=== PATIENT | female | born 1995 | race American Indian/Alaskan Native ===

== ENCOUNTER 2020-10-10 11:23 | Emergency (ER) | payer MEDICAID ==
[2020-10-10 12:03] VITALS: BP 124/81
[2020-10-10 12:25] LABS: Basophils % (Auto) 0.5 % (0.0-1.8); Eosinophils % (Auto) 0.6 % (0.0-4.3); Hematocrit 39.9 % (30.3-42.9); Hemoglobin 13.2 gm/dl (10.1-14.3); Lymphocytes # (Auto) 2.2 K/mm3 (1.2-5.4); Mean Corpuscular HGB Conc 33 % (30-34); Mean Corpuscular Volume 89 fl (79-97); Monocytes # (Auto) 0.7 K/mm3 (0.0-0.8); Monocytes % (Auto) 8.9 % (0.0-7.3); Platelet Count 467 K/mm3 (140-440); Red Cell Distribution Width 15.1 % (13.2-15.2)
[2020-10-10 12:43] LABS: Alanine Aminotransferase 13 units/L (7-56); Albumin 4.2 g/dL (3.9-5); Blood Urea Nitrogen 10 mg/dL (7-17); Calcium 8.7 mg/dL (8.4-10.2); Hemolysis Index 13
--- NOTE | 2020-10-10 12:44 | Emergency Department Report ---
ED General Adult HPI - General Chief complaint: Nausea/Vomiting/Diarrhea Stated complaint: N/V SIGNS OF Time Seen by Provider: 10/10/20 12:02 Source: patient Mode of arrival: Ambulatory Limitations: No Limitations - History of Present Illness Initial comments: 25-year-old female without significant past medical history presenting with chief complaint of nausea and vomiting. According to the patient for the past week she has felt morning sickness daily with 2-3 episodes of vomiting each day. She denies diarrhea. She denies any significant abdominal pain. Denies fever, dysuria. Symptoms are mild to moderate, nothing makes worse or better, states she is able to tolerate oral fluids without difficulty. - Related Data Previous Rx's Medication Instructions Recorded Last Taken Type Promethazine [Phenergan] 25 mg PO Q6HR PRN #20 tab 10/10/20 Unknown Rx Allergies Allergy/AdvReac Type Severity Reaction Status Date / Time tuna oil Allergy Swelling Verified 10/10/20 12:01 ED Review of Systems ROS: Stated complaint: N/V SIGNS OF Other details as noted in HPI Comment: All other systems reviewed and negative Gastrointestinal: as per HPI ED Past Medical Hx - Past Medical History Previous Medical History?: No - Surgical History Past Surgical History?: No - Social History Smoking Status: Never Smoker Substance Use Type: None - Medications Home Medications: Home Medications Medication Instructions Recorded Confirmed Last Taken Type Promethazine [Phenergan] 25 mg PO Q6HR PRN #20 tab 10/10/20 Unknown Rx ED Physical Exam - General Limitations: No Limitations General appearance: alert, in no apparent distress - Head Head exam: Present: atraumatic, normocephalic - Eye Eye exam: Present: normal appearance - ENT ENT exam: Present: mucous membranes moist - Neck Neck exam: Present: normal inspection - Respiratory Respiratory exam: Present: normal lung sounds bilaterally. Absent: respiratory distress - Cardiovascular Cardiovascular Exam: Present: regular rate, normal rhythm. Absent: systolic murmur, diastolic murmur, rubs, gallop - GI/Abdominal GI/Abdominal exam: Present: soft, normal bowel sounds. Absent: distended, tenderness, guarding - Extremities Exam Extremities exam: Present: normal inspection - Back Exam Back exam: Present: normal inspection - Neurological Exam Neurological exam: Present: alert, oriented X3 - Psychiatric Psychiatric exam: Present: normal affect, normal mood - Skin Skin exam: Present: warm, dry, intact, normal color. Absent: rash ED Course Vital Signs 10/10/20 12:01 Temperature 98.1 F Pulse Rate 83 Respiratory 16 Rate Blood Pressure 124/81 O2 Sat by Pulse 98 Oximetry ED Medical Decision Making - Lab Data Result diagrams: 10/10/20 12:09 10/10/20 12:09 Lab Results 10/10/20 10/10/20 10/10/20 Range/Units 12:09 12:09 12:09 WBC 7.9 (4.5-11.0) K/mm3 RBC 4.50 (3.65-5.03) M/mm3 Hgb 13.2 (10.1-14.3) gm/dl Hct 39.9 (30.3-42.9) % MCV 89 (79-97) fl MCH 29 (28-32) pg MCHC 33 (30-34) % RDW 15.1 (13.2-15.2) % Plt Count 467 H (140-440) K/mm3 Lymph % (Auto) 28.0 (13.4-35.0) % [place] % (Auto) 8.9 H (0.0-7.3) % Eos % (Auto) 0.6 (0.0-4.3) % Baso % (Auto) 0.5 (0.0-1.8) % Lymph # (Auto) 2.2 (1.2-5.4) K/mm3 [place] # (Auto) 0.7 (0.0-0.8) K/mm3 Eos # (Auto) 0.0 (0.0-0.4) K/mm3 Baso # (Auto) 0.0 (0.0-0.1) K/mm3 Seg Neutrophils % 62.0 (40.0-70.0) % Seg Neutrophils # 4.9 (1.8-7.7) K/mm3 Sodium 138 (137-145) mmol/L Potassium 4.2 (3.6-5.0) mmol/L Chloride 104.7 (98-107) mmol/L Carbon Dioxide 26 (22-30) mmol/L Anion Gap 12 mmol/L BUN 10 (7-17) mg/dL Creatinine 0.6 (0.6-1.2) mg/dL Estimated GFR > 60 ml/min BUN/Creatinine Ratio 17 % Glucose 87 (65-100) mg/dL Calcium 8.7 (8.4-10.2) mg/dL Total Bilirubin 0.20 (0.1-1.2) mg/dL AST 18 (5-40) units/L ALT 13 (7-56) units/L Alkaline Phosphatase 107 (35-129) units/L Total Protein 7.7 (6.3-8.2) g/dL Albumin 4.2 (3.9-5) g/dL Albumin/Globulin Ratio 1.2 % Lipase 17 (13-60) units/L HCG, Quant < 2 (0-4) mIU/mL - Medical Decision Making Patient presented with nausea and vomiting especially in the morning for the past week. On my exam patient is nontoxic and in no distress. States currently she is not nauseated. Abdominal exam is overall benign . Differential diagnoses includes , gastritis, dehydration. Labs pending. Ultrasound will be obtained if is positive. Labs are within normal limits, hCG is negative. I do not see indication for imaging at this time. Patient has no significant abdominal tenderness specifically in the right lower or right upper quadrants. No current symptoms. Will treat symptomatically and refer to PCP for follow-up. Return precautions were given. She agrees. - Differential Diagnosis , dehydration, gastritis Critical care attestation.: If time is entered above; I have spent that time in minutes in the direct care of this critically ill patient, excluding procedure time. ED Disposition Clinical Impression: Nausea & vomiting Qualifiers: Vomiting type: unspecified Vomiting Intractability: non-intractable Qualified Code(s): R11.2 - Nausea with vomiting, unspecified Disposition: DC- TO HOME OR SELFCARE Is pt being admited?: No Condition: Good Instructions: Vomiting, Adult Prescriptions: Promethazine [Phenergan] 25 mg PO Q6HR PRN #20 tab PRN Reason: Nausea Referrals: FEROZ BIRMINGHAM MD [Staff Physician] - 3-5 Days Time of Disposition: 12:59
[2020-10-10 12:51] LABS: BUN/Creatinine Ratio 17
== END 2020-10-10 13:32 | disposition home or self-care (01) ==
LOC: ED 11:23
DX: R11.2 Nausea with vomiting, unspecified (principal); Z79.899 Other long term (current) drug therapy; Z88.8 Allergy status to other drugs, medicaments and biological substances
CPT/HCPCS: 36415; 80053; 83690; 84702; 85025

== ENCOUNTER 2021-10-31 13:47 | Outpatient (CLI) | payer MEDICAID ==
[2021-10-31 14:17] VITALS: BP 113/66
[2021-10-31 16:23] LABS: Bacteria,Urine 1+ /HPF (Negative); Bilirubin,Urine NEG (Negative); Blood,Urine NEG (Negative); Color,Urine Yellow (Yellow); Mucus,Urine FEW /HPF; Protein,Urine <15 mg/dL mg/dL (Negative)
[2021-10-31] MEDS ORDERED: LACTATED RINGERS 500 ML IV ONE (17:00)
--- NOTE | 2021-10-31 18:00 | Ultrasound Report ---
Biophysical profile Ultrasound HISTORY: 36.2 WEEKS GESTATION, ABD. PAIN AND PRESSURE - BPP. TECHNIQUE: Grayscale and color imaging performed. COMPARISON: None FINDINGS: Fetus received a score of 2 out of 2 for breathing, movement, posture/tone, and BLADIMIR. Total score was 8 out of 8. Heart rate during the exam was 141 bpm. IMPRESSION: Normal BPP. Signer Name: Cordell Perea MD Signed: 10/31/2021 5:55 PM Workstation Name: [id number]
--- NOTE | 2021-10-31 18:05 | Ultrasound Report ---
ULTRASOUND OBSTETRIC LIMITED INDICATION / CLINICAL INFORMATION: 36.2 WEEKS GESTATION, ABD. PAIN AND PRESSURE - BLADIMIR. TECHNIQUE: Transabdominal. COMPARISON: None available. FINDINGS: HEART RATE (beats per minute): 156 AMNIOTIC FLUID INDEX (cm) = 15.6 (normal = 7-24 cm) PRESENTATION: Cephalic. ADDITIONAL FINDINGS: None. IMPRESSION: Amniotic fluid index measures 15.6 cm. Signer Name: Sky Karimi MD Signed: 10/31/2021 6:01 PM Workstation Name: [id number]
[2021-10-31] MEDS ORDERED: D5W/LACTATED RINGERS 1,000 ML IV ONE (20:56)
== END 2021-10-31 22:30 | disposition home or self-care (01) ==
LOC: APU 13:47 → TRG 13:47
PROVIDERS: ATTEND Obstetrics & Gynecology
DX: O26.893 Other specified pregnancy related conditions, third trimester (principal); R10.30 Lower abdominal pain, unspecified; Z3A.36 36 weeks gestation of pregnancy
CPT/HCPCS: 59025; 76816; 76819; 81001; 87086; 96361; 96365; J0690; J7120; J7121; J7060